=== PATIENT | female | born 1995 | race Hispanic/Latino ===

== ENCOUNTER 2016-07-27 20:31 | Emergency (ER) | payer MEDICAID, OTHER ==
[~2016-07-27] VITALS: Ht 157.5 cm; Wt 72.7 kg
[~2016-07-27 20:31] MED LIST: CEPH-512 PO; ONDA8TAB10 PO
[2016-07-27 21:37] VITALS: BP 125/84; RESP 16; O2SAT 97
--- NOTE | 2016-07-27 23:53 | ED.REPORT ---
HPI-General Illness Date of Service Jul 27, 2016 ED Provider: Dr. Rosas A 21 year old female presents to the ED complaining of nasal pain. Associated symptoms include headache described as pressure, purulent nose discharge, fever , and red face. she had epistaxis yesterday. She denies . Patient's thinks that she has a sinus infection. Nursing Notes Stated Complaint: NASAL INFECTION Chief Complaint: ENT & Mouth Nursing Notes Reviewed: Yes Allergies: Coded Allergies: No Known Allergies (Unverified , 07/27/16) Scheduled Cephalexin (Keflex) 500 Mg Capsule 500 MG PO QID Scheduled PRN Ondansetron ODT (Ondansetron ODT) 8 Mg Tab.rapdis 8 MG PO QID PRN PRN For Nausea /Vomiting General Time Seen by MD: 23:53 Chief Complaint Other (nasal pain) Hx Obtained From: Patient, Spouse Arrived By: Walk-in Onset Occurred: Yesterday Symptom Duration: Since onset Severity: Current: Moderate Severity: Maximum: Moderate Recent Healthcare: No recent doctor visit Similar Sx Previous: No Past Medical History Past Medical History Denies any alleriges to any antibiotics. Past Surgical History None reported. Smoking History Never Smoker Social History Alcohol Use: Denies alcohol use Drug Use: Denies drug use Review of Systems Purulent nose discharge. Red face. Full Review of Systems Constitutional: Reports: Fever Ears / Nose / Throat: Reports: Nose bleeding, Sinus problem (nasal pain) Respiratory: Denies: Non-productive cough Female: Denies: Neurologic: Reports: Headache (pressure in head) Complete sys rev & neg: except as marked. Physical Exam Vital Signs Vital Signs Date Time Temp Pulse Resp B/P Pulse Ox O2 Delivery O2 Flow Rate FiO2 07/27/16 21:37 36.9 109 16 125/84 97 Room Air Initial VS: Reviewed General/Constitutional: Awake, Alert Head / Eyes: Normocephalic, PERRL, EOMI Tendernes with percussion over frontal maxillary sinuses. Nose: Positive: Discharge nasal purulent (Discharge from both turbinates.) Respiratory / Chest: Atraumatic, Breath sounds NL, Breath sounds = bilat, No respiratory distress, No rales, No rhonchi, No wheezing Cardiovascular: Heart rate NL, Regular rhythm, Heart sounds NL, No gallop, No murmurs, No rubs Abdomen: No guarding, No rebound Upper Extremities Upper Extremity / MS: No swelling, No edema Skin: Atraumatic, Color NL Neurologic: Oriented X3, Speech NL Re-Eval/Medical Decision Med Decision/Clinical Course Frontal and maxillary headache with mucopurulent nasal discharge. No signs or symptoms consistent with meningitis or subarachnoid hemorrhage. She has obvious sinusitis. As such we will treat with oral antibiotics and topical Afrin and outpatient follow-up. She was provided a short course of hydrocodone for the pain with routine opiate warnings. Source of Hx: Old records Time of Eval: 23:54 Re-Evaluation/Progress Note: Explained diagnosis and plan for discharge. Patient understands and agrees with the plan. All questions addressed. Counseled Regarding: Diagnosis, Need for follow-up, When/why to return to ED Discharge & Departure Primary Impression: Sinusitis, acute maxillary Recurrence: non-recurrent Qualified Code: J01.00 - Acute maxillary sinusitis , unspecified Disposition: Home Discharge Condition All VS Reviewed: Yes Condition: Critical Patient Instructions: Sinusitis (ED) Additional Instructions: Augmentin twice daily for 7 days. This is for the infection. Afrin 2 sprays twice daily for 3 days then stop the Afrin. [place] one every 6 hours as needed for pain. Do not drive or drink alcohol or consume acetaminophen before taking the [place]. Read the sinusitis after care instructions given. Contact her primary care physician for follow-up next week. Return if any problems or any worsening symptoms. Referrals: [facility]CP (PCP) [facility] Ashley Attestation Portions of this note were transcribed by Parvez Ramos. I, Dr. Rosas personally performed the history, physical exam and medical decision-making; I reviewed and confirmed the accuracy of the information in the transcribed note. Signed by: Ashley Keller, 07/28/2016, 0042. copies to: [facility] Yahir Rosas DO Jul 27, 2016 23:53 Parvez Ramos Jul 28, 2016 00:00
[2016-07-28] MEDS ORDERED: _HYDROcodone/APAP 5-325 mg Tablet PO PRN
[2016-07-28] MEDS ORDERED: Amoxicillin-Clav 875-125 mg Tablet PO ONE
== END 2016-07-28 00:24 | disposition home or self-care (01) ==
LOC: SED 20:31
DX: J01.00 Acute maxillary sinusitis, unspecified (principal)

== ENCOUNTER 2016-09-02 15:05 | Emergency (ER) | payer OTHER ==
[~2016-09-02] VITALS: Ht 154.9 cm; Wt 74.1 kg
[2016-09-02 15:08] VITALS: BP 112/72; PULSE 92; RESP 16; O2SAT 98
--- NOTE | 2016-09-02 15:40 | ED.REPORT ---
HPI-General Illness Date of Service September 02, 2016 ED Provider: Kyle Rain MD Pt is a 21 y/o female presenting to the ED c/o right-sided facial numbness and paralysis onset this morning. She report being unable to shut her right eye. Her numbness began at the upper portion of her right face and progressed to include the lower portion of her right face. 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 Pt denies any focal numbness or weakness of the extremities, headache, vision changes, speech changes, dizziness. Nursing Notes Stated Complaint: HALF OF FACE NUMB Chief Complaint: Neuro Symptoms/ Deficits Nursing Notes Reviewed: Yes Allergies: Coded Allergies: No Known Allergies (Unverified , 07/27/16) Scheduled Cephalexin (Keflex) 500 Mg Capsule 500 MG PO QID Prednisone (PredniSONE) 20 Mg Tablet 40 MG PO DAILY Valacyclovir (Valacyclovir) 1,000 Mg Tablet 1,000 MG PO TID Scheduled PRN Ondansetron ODT (Ondansetron ODT) 8 Mg Tab.rapdis 8 MG PO QID PRN PRN For Nausea /Vomiting General Time Seen by MD: 15:39 Chief Complaint Other (facial paralysis) Hx Obtained From: Patient Arrived By: Walk-in Sudden in Onset?: No Onset Occurred: 9 - 12 hours ago Symptom Duration: Since onset Severity: Current: No pain currently Severity: Maximum: No pain Past Medical History Past Medical History Cook's Palsy Denies any alleriges to any antibiotics. Past Surgical History None reported. Smoking History Never Smoker Social History Alcohol Use: Denies alcohol use Drug Use: Denies drug use Ambulatory Status Independent Review of Systems +right facial paralysis and numbness Full Review of Systems Constitutional: Denies: Chills, Fever Neurologic: Reports: Numbness, Denies: Dizziness, Focal weakness, Headache, Lightheaded, Problem walking, Seizure, Shaking, Slurred speech, Syncope, Unable to speak, Vision change Complete sys rev & neg: except as marked. Physical Exam Vital Signs Vital Signs Date Time Temp Pulse Resp B/P Pulse Ox O2 Delivery O2 Flow Rate FiO2 09/02/16 15:08 36.9 92 16 112/72 98 Room Air Initial VS: Reviewed Head / Eyes: Atraumatic, Normocephalic, PERRL ENT: Mucous membranes moist, Conjunctiva normal, No scleral icterus Neck: Supple, Full range of motion Respiratory: Breath sounds normal, Clear to auscultation, No respiratory distress Cardiovascular: Regular rate & rhythm, Heart sounds normal, Intact distal pulses Abdomen / GI: Soft, Non-tender, No guarding, No rebound, No distention Extremities: Vascular intact, Neuro intact, No swelling, No tenderness Skin: Warm, Dry, No cyanosis Psychiatric: Mood/affect normal, Behavior normal, Normal thought content Neurologic: Oriented X3, Speech NL, No sensory deficits, Cerebellar NL, Memory NL Complete paralysis of right side of face No sensory deficits No pronator drift Re-Eval/Medical Decision Med Decision/Clinical Course Patient is a healthy 21-year-old female who presents with right sided facial paralysis for the last day. She has had identical symptoms in the past attributed to Cook's palsy with complete resolution after a course of oral steroids. Her presentation today is similar to prior. She has not had any recent trauma and she denies any other associated weakness, numbness, tingling. Examination is completely consistent with Cook's palsy. I prescribed a seven- day course of prednisone as well as valacyclovir. She has been advised to apply Lacri-Lube drops to her eyes frequently throughout the day and apply ophthalmic ointment and tape her eye shut at night. She does not have a primary care physician so she has been referred to the residency clinic and will call later today or first thing on Monday to arrange for follow-up. Prior to discharge follow-up and return precautions were reviewed in detail with the patient who verbalized understanding and agreement with the plan. The patient was discharged in stable condition. Time of Eval: 15:52 Re-Evaluation/Progress Note: Pt rechecked. Informed pt of plan for treatment. Pt understands and agrees with plan for treatment. F/U instructions and RTER warnings given. All questions addressed. Counseled Regarding: Diagnosis, Need for follow-up, When/why to return to ED Discharge & Departure Primary Impression: Cook's palsy Additional Impressions: Facial paralysis on right side History of Cook's palsy Disposition: Home Discharge Condition All VS Reviewed: Yes Condition: Stable Patient Instructions: Cook Palsy (ED) Additional Instructions: Thank you for seeking care at the emergency room. Your physical exam and interview is consistent with Cook's Palsy. Our primary goal today in the ED was to evaluate you for any life-threatening conditions. Your evaluation was reassuring. You will be discharged with a prescription for steroids and eye drops. Please use these as directed. To prevent damage to your eye while you sleep, you should use the eye ointment and then have somebody tape your eye shut. I recommend you use eye drops during the day. You should follow-up with a primary doctor in the next week. The [facility] will be happy to see you. You should return to the ED immediately if you develop one-sided numbness or weakness of your arms or legs, severe headache, balance problems, fevers, vomiting, shortness of breath, chest pain, lightheadedness, weakness or any other concerning signs or symptoms. Thank you for letting us partake in your care today. Referrals: [facility] Scribe Attestation Portions of this note were transcribed by Dar Ryder. I, Dr. Rain personally performed the history, physical exam and medical decision-making; I reviewed and confirmed the accuracy of the information in the transcribed note. Signed by Ashley Landeros, 09/02/16 - 1599 Kyle Rain MD September 02, 2016 15:40 DAR RYDER September 02, 2016 15:50
[2016-09-02] MEDS ORDERED: VALA100026 PO (15:57)
[2016-09-02] MEDS ORDERED: PRE20 PO (15:57)
== END 2016-09-02 16:00 | disposition home or self-care (01) ==
LOC: SED 15:05
DX: G51.0 Bell's palsy (principal)

== ENCOUNTER 2016-11-23 19:55 | Emergency (ER) | payer OTHER ==
[~2016-11-23] VITALS: Ht 154.9 cm; Wt 73.2 kg
[~2016-11-23 19:55] MED LIST changes: +PRE20 PO; +VALA100026 PO
[2016-11-23 19:58] VITALS: BP 131/88; PULSE 92; RESP 16; O2SAT 98
--- NOTE | 2016-11-23 21:02 | ED.REPORT ---
HPI-Rash / Abscess Date of Service Nov 23, 2016 ED Provider: Kyle Rain MD The patient is a 21 year old female who presents to the ED with a bump on her inner lip that first appeared 2 months ago. The patient presents to the ED this evening because of worsening discomfort. She denies any recent fever, chills, redness, swelling, pustule drainage or any other signs of infection. The patient denies any similar symptoms previously. Patient denies any other medical complaints at this time. Nursing Notes Stated Complaint: MUCOUS CYST Chief Complaint: General Complaint Nursing Notes Reviewed: Yes Allergies: Coded Allergies: No Known Allergies (Unverified , 11/23/16) Scheduled Cephalexin (Keflex) 500 Mg Capsule 500 MG PO QID Prednisone (PredniSONE) 20 Mg Tablet 40 MG PO DAILY Valacyclovir (Valacyclovir) 1,000 Mg Tablet 1,000 MG PO TID Scheduled PRN Ondansetron ODT (Ondansetron ODT) 8 Mg Tab.rapdis 8 MG PO QID PRN PRN For Nausea /Vomiting General Time Seen by MD: 21:01 Chief Complaint Other (Lip Cyst) Hx Obtained From: Patient Arrived By: Walk-in Onset Occurred: More than a week ago... (2 months) Symptom Duration: Since onset Location: : Head/face (Lip ) Quality: Same as prior Severity: Current: Mild Severity: Maximum: Mild Associated with: Denies Fever Pertinent Negative: Pt denies other symptoms Recent Healthcare: No recent doctor visit, No recent hospitalization Past Medical History Past Medical History Cook's Palsy Denies any alleriges to any antibiotics. Past Surgical History None reported. Smoking History Never Smoker Social History Alcohol Use: Denies alcohol use Drug Use: Denies drug use Other Social History: Good social support, Local resident Ambulatory Status Independent Review of Systems + lip bump Denies redness, swelling, pustule drainage/ other signs of infection. Constitutional: Denies: Chills, Fever Physical Exam Initial Vital Signs Vital Signs (First) Date Time Temp Pulse Resp B/P Pulse Ox O2 Delivery O2 Flow Rate FiO2 11/23/16 19:58 36.7 92 16 131/88 98 Room Air Initial VS: Reviewed Extremities: Vascular intact, Neuro intact, No swelling, No tenderness Neurologic: Alert, Oriented, Nonfocal Psychiatric: Mood/affect normal, Behavior normal, Normal thought content General/Constitutional: Awake, Alert, No acute distress, Well appearing, Well developed Skin: Atraumatic, Color NL, No rash, Warm, Dry Head / Eyes: Atraumatic, Normocephalic, PERRL ENT: Atraumatic, Airway patent, Mucous membranes moist, Pharynx NL, Tympanic membs NL, Ext aud canal NL LIP: Firm cyst to the inner aspect of her R lip Respiratory / Chest: Atraumatic, Breath sounds NL, Breath sounds = bilat, No respiratory distress Cardiovascular: Heart rate NL, Regular rhythm, Heart sounds NL, No gallop, No murmurs, No rubs Neck: Atraumatic, Supple, Full range of motion, No adenopathy, Non-tender Lymphatic: No gross adenopathy, No cervical adenopathy, No axillary adenopathy Re-Eval/Medical Decision Med Decision/Clinical Course Patient presents with 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 There is no evidence of abscess or cellulitis. This has been gradual in onset and present for quite a while. Patient would like to have it removed. I explained that this would be best performed on an outpatient basis with an all around gear machine operator given the cosmetic location. At this time there is no evidence that this is infectious in etiology and her airway is widely patent. Patient has been referred to ENT and will call tomorrow morning for follow-up. Prior to discharge follow-up and return precautions were reviewed in detail with the patient who verbalized understanding and agreement with the plan. The patient was discharged in stable condition. Re-Evaluation/Progress : Time of Eval: 21:33 Patient Status: Condition improved Re-Evaluation/Progress Note: The patient's symptoms have improved upon recheck. All questions are addressed. The patient understands and agrees with the intended treatment plan. Counseled Regarding: Diagnosis, Need for follow-up, When/why to return to ED Discharge & Departure Impression: Primary Impression: Lip cyst Disposition: Home Discharge Condition All VS Reviewed: Yes Condition: Improved Patient Instructions: Cyst (ED) Additional Instructions: Thank you for seeking care at emergency room. It is difficult for us to make definitive diagnoses in the ED but we believe that you are experiencing a cyst on your lip. Our primary goal today in the ED was to evaluate you for any life-threatening conditions. Your evaluation was reassuring. You should follow-up with the referred ear, nose and throat physician to have the cyst removed. You should return to the ED immediately if you develop fevers,redness, swelling , warmth, pustule drainage or any other concerning signs or symptoms. Thank you for letting us partake in your care today. Referrals: NOPCP (PCP) Mynor Yee MD Scribe Attestation Portions of this note were transcribed by Nikki Qiu. I, Dr. Rain personally performed the history, physical exam and medical decision-making; I reviewed and confirmed the accuracy of the information in the transcribed note. Kyle Rain MD Nov 23, 2016 21:02 NIKKI QIU Nov 23, 2016 21:25
== END 2016-11-23 21:25 | disposition home or self-care (01) ==
LOC: SED 19:55
DX: K13.0 Diseases of lips (principal); Z79.2 Long term (current) use of antibiotics